=== PATIENT | female | born 1940 | race Caucasian/White ===

== ENCOUNTER → 2017-05-09 | Outpatient (CLI) | payer OTHER, MEDICARE | LOC: BMCIMAGING 12:37 | PROVIDERS: ATTEND Internal Medicine Rheumatology | DX: M75.101 Unspecified rotator cuff tear or rupture of right shoulder, not specified as traumatic (principal) ==

== ENCOUNTER 2018-01-18 02:01 | Emergency (ER) | payer OTHER, MEDICARE ==
[2018-01-18] MEDS ORDERED: methylPREDNISolone SOD SUCC 125 MG/2 ML VIAL IVP ONE (02:25)
[2018-01-18] MEDS ORDERED: HYDROmorphONE/DILAUDID 1 MG/ML INJ IVP ONE (02:25)
--- NOTE | 2018-01-18 02:33 | EDPHY ---
H & P Stated Complaint: RA AND OSTEO PAIN NOT CONTROLLED WITH HER PAIN MEDS Time Seen by Provider: 01/18/18 02:07 HPI/ROS: Chief Complaint: Pain, rheumatoid arthritis flare HPI: 77-year-old woman with a history of rheumatoid and osteoarthritis is presenting with worsening of her typical pain over the last 4 days. Patient states that she usually gets flares with nurse changes in the weather. She states she had worsening pain 4 days ago. At that time she increased her prednisone from 10 mg to 60 mg for single day, then dropped to 20 mg the next day and then finally back to 10 mg yesterday. She has also been using increased doses of her hydrocodone. She has been taking 5 mg 3 times a day for the last 2 days without any significant relief. She normally only takes this intermittently. Denies any fevers or chills. She was recently diagnosed with urinary tract infection a couple no other recent illness. No fevers or chills. No chest pain. No cough. No nausea or vomiting. Pain is primarily in her legs and shoulders and in her fingers of her right hand with no numb. These are her usual areas of pain exacerbation. It is exactly the same as prior flares in the past. ROS: 10 point Review of Systems is negative except as noted in the HPI. PMH: Rheumatoid arthritis, osteoarthritis Social History: No smoking, no alcohol, no recreational drug use Family History: non-contributory Physical Exam: Gen: Awake, Alert, No Distress HEENT: Nose: no rhinorrhea Eyes: PERRLA, EOMI Mouth: Moist mucosa Neck: Supple, no JVD Chest: nontender, lungs clear to auscultation Heart: S1, S2 normal, no murmur Abd: Soft, non-tender, no guarding Back: no CVA tenderness, no midline tenderness Ext: no edema, non-tender Skin: no rash Neuro: CN II-XII intact, Sensation grossly intact, Strength 5/5 in bilateral upper and lower extremities - Personal History Current Tetanus/Diphtheria Vaccine: Yes Current Tetanus Diphtheria and Acellular Pertussis (TDAP): Yes Tetanus Vaccine Date: 29/08/15 - Medical/Surgical History Hx Asthma: No Hx Chronic Respiratory Disease: No Hx Diabetes: No Hx Cardiac Disease: Yes Hx Renal Disease: No Hx Cirrhosis: No Hx Alcoholism: No Hx HIV/AIDS: No Hx Splenectomy or Spleen Trauma: No Other PMH: rheumatoid arthritis, osteo arthritis, CHF, TIA, bradycardia, cholecystectomy, kidney stones, vascular surgery, l hip replacement - Social History Smoking Status: Never smoked Constitutional: Initial Vital Signs Temperature (C) 36.8 C 01/18/18 02:09 Heart Rate 84 01/18/18 02:09 Respiratory Rate 18 01/18/18 02:09 Blood Pressure 126/95 H 01/18/18 02:09 O2 Sat (%) 95 01/18/18 02:09 O2 Delivery Mode Nasal Cannula O2 (L/minute) 2 Allergies/Adverse Reactions: diphenhydramine HCl [From Benadryl] Allergy (Verified 01/18/18 02:13) tremors Penicillins Allergy (Verified 01/18/18 02:13) jittery and goofy promethazine HCl [From Phenergan] Allergy (Verified 01/18/18 02:13) tremors Home Medications: Medication Instructions Recorded Carvedilol [Coreg (*)] 6.25 mg PO BIDMEAL 01/08/15 Clopidogrel Bisulfate [Plavix (*)] 75 mg PO DAILY 01/08/15 Methotrexate Sodium [Methotrexate] 10 mg PO GALLAGHER 01/08/15 Pantoprazole Sodium [Protonix 40mg 40 mg PO BIDAC 01/08/15 (*)] Ranitidine HCl 150 mg PO DAILY@1230 01/08/15 Spironolactone [Aldactone 25 MG 12.5 mg PO DAILY 01/08/15 (*)] Domperidone 10mg 10 mg PO DAILY@12 02/24/16 Domperidone 10mg 20 mg PO BIDAC 02/24/16 Lisinopril [Zestril 2.5 mg (*)] 2.5 mg PO DAILY 02/24/16 Atorvastatin Calcium [Lipitor 40 40 mg PO HS 08/11/16 mg (*)] Hydrocodone/Acetaminophen [Homer 1 - 1.5 each PO Q6 PRN 08/11/16 5/325 (*)] Ofloxacin 0.3% [Ocuflox 0.3%] 1 - 2 drops EACHEYE TID 08/11/16 Ondansetron [Ondansetron Odt] 8 mg PO DAILY PRN 08/11/16 predniSONE 10 mg PO DAILY 08/11/16 Medical Decision Making ED Course/Re-evaluation: Patient is significantly improved after Solu-Medrol, Dilaudid and fentanyl. Pain is down to 3 to 4/10. She is ambulating unassisted in the emergency department. Plan will be to discharge to home with follow-up with her mail deliverer later today. - Data Points Laboratory Results: Laboratory Results 01/18/18 02:15 01/18/18 02:15 01/18/18 01/18/18 01/18/18 03:20 02:15 02:15 WBC 7.76 10^3/uL 10^3/uL (3.80-9.50) RBC 4.07 10^6/uL L 10^6/uL (4.18-5.33) Hgb 12.8 g/dL g/dL (12.6-16.3) Hct 38.2 % % (38.0-47.0) MCV 93.9 fL fL (81.5-99.8) MCH 31.4 pg pg (27.9-34.1) MCHC 33.5 g/dL g/dL (32.4-36.7) RDW 14.9 % % (11.5-15.2) Plt Count 185 10^3/uL 10^3/uL (150-400) MPV 9.7 fL fL (8.7-11.7) Neut % (Auto) 79.1 % H % (39.3-74.2) Lymph % (Auto) 10.7 % L % (15.0-45.0) Steele % (Auto) 8.9 % % (4.5-13.0) Eos % (Auto) 0.6 % % (0.6-7.6) Baso % (Auto) 0.3 % % (0.3-1.7) Nucleat RBC Rel Count 0.0 % % (0.0-0.2) Absolute Neuts (auto) 6.14 10^3/uL 10^3/uL (1.70-6.50) Absolute Lymphs (auto) 0.83 10^3/uL L 10^3/uL (1.00-3.00) Absolute Monos (auto) 0.69 10^3/uL 10^3/uL (0.30-0.80) Absolute Eos (auto) 0.05 10^3/uL 10^3/uL (0.03-0.40) Absolute Basos (auto) 0.02 10^3/uL 10^3/uL (0.02-0.10) Absolute Nucleated RBC 0.00 10^3/uL 10^3/uL (0-0.01) Immature Gran % 0.4 % % (0.0-1.1) Immature Gran # 0.03 10^3/uL 10^3/uL (0.00-0.10) Sodium 140 mEq/L mEq/L (135-145) Potassium 4.5 mEq/L mEq/L (3.3-5.0) Chloride 105 mEq/L mEq/L (97-110) Carbon Dioxide 23 mEq/l mEq/l (22-31) Anion Gap 12 mEq/L mEq/L (8-16) BUN 20 mg/dL mg/dL (7-23) Creatinine 0.7 mg/dL mg/dL (0.6-1.0) Estimated GFR Not Reported Glucose 99 mg/dL mg/dL (70-100) Calcium 9.1 mg/dL mg/dL (8.5-10.4) Urine Color PALE YELLOW Urine Appearance CLEAR Urine pH 5.0 (5.0-7.5) Ur Specific [place] 1.009 (1.002-1.030) Urine Protein NEGATIVE (NEGATIVE) Urine Ketones TRACE H (NEGATIVE) Urine Blood NEGATIVE (NEGATIVE) Urine Nitrate NEGATIVE (NEGATIVE) Urine Bilirubin NEGATIVE (NEGATIVE) Urine Urobilinogen NEGATIVE EU EU (0.2-1.0) Ur Leukocyte Esterase 1+ H (NEGATIVE) Urine RBC 1-3 /hpf /hpf (0-3) Urine WBC 15-25 /hpf H /hpf (0-3) Ur Epithelial Cells TRACE /lpf /lpf (NONE-1+) Urine Bacteria TRACE /hpf H /hpf (NONE SEEN) Urine Mucus TRACE /lpf /lpf (NONE-1+) Urine Glucose NEGATIVE (NEGATIVE) Medications Given: Discontinued Medications Fentanyl (Sublimaze) 50 mcg IVP EDNOW ONE Stop: 01/18/18 03:32 Last Admin: 01/18/18 03:35 Dose: 50 mcg Hydromorphone HCl (Dilaudid) 0.5 mg IVP EDNOW ONE Stop: 01/18/18 02:26 Last Admin: 01/18/18 02:30 Dose: 0.5 mg Hydromorphone HCl (Dilaudid) 0.5 mg IVP EDNOW ONE Stop: 01/18/18 02:56 Last Admin: 01/18/18 03:01 Dose: 0.5 mg Sodium Chloride (Ns) 1,000 mls @ 0 mls/hr IV ONCE ONE PRN Reason: Wide Open Stop: 01/18/18 04:16 Last Admin: 01/18/18 04:15 Dose: 1,000 mls Methylprednisolone Sodium Succinate (Solu-Medrol) 125 mg IVP EDNOW ONE Stop: 01/18/18 02:26 Last Admin: 01/18/18 02:30 Dose: 125 mg Ondansetron HCl (Zofran) 4 mg IVP EDNOW ONE Stop: 01/18/18 05:08 Last Admin: 01/18/18 05:07 Dose: 4 mg Departure - Departure Disposition: Home, Routine, Self-Care Clinical Impression: Rheumatoid arthritis Condition: Good Instructions: Rheumatoid Arthritis (ED) Additional Instructions: Follow up with your mail deliverer later today. Return emergency department had for increasing pain, nausea, vomiting, fainting , fevers, chills, or any other concerns. Referrals: [facility] [Other] - As per Instructions Will Decker MD [[facility] Primary Care Provider] - As per Instructions
[2018-01-18 02:46] LABS: PLATELET COUNT 185 10^3/uL (150-400)
[2018-01-18] MEDS ORDERED: HYDROmorphONE/DILAUDID 2 MG/ML INJ IVP ONE (02:55)
[2018-01-18] MEDS ORDERED: HYDROmorphONE/DILAUDID 1 MG/ML INJ ONE (02:57)
[2018-01-18] MEDS ORDERED: fentaNYL 100 MCG/2 ML INJ IVP ONE (03:31)
[2018-01-18] MEDS ORDERED: NS 1,000 ML IV ONE (04:15)
[2018-01-18] MEDS ORDERED: ONDANSETRON 4 MG/2 ML VIAL ONE (05:04)
[2018-01-18] MEDS ORDERED: ONDANSETRON 4 MG/2 ML VIAL IVP ONE ×2 (05:07→05:10)
[2018-01-18 06:39] VITALS: BP 122/68
== END 2018-01-18 06:47 | disposition home or self-care (01) ==
DX: M06.9 Rheumatoid arthritis, unspecified (principal); I50.9 Heart failure, unspecified
CPT/HCPCS: 96361; 96374; 96375; 96376; 99284; J1170; J2405; J2930; J3010

== ENCOUNTER → 2018-05-17 | Outpatient (CLI) | payer OTHER, MEDICARE | LOC: BMCIMAGING 09:44 | PROVIDERS: ATTEND Internal Medicine Rheumatology | DX: Z13.820 Encounter for screening for osteoporosis (principal); M80.08XA Age-related osteoporosis with current pathological fracture, vertebra(e), initial encounter for fracture; Z78.0 Asymptomatic menopausal state ==

== ENCOUNTER → 2018-11-04 | Outpatient (CLI) | payer OTHER, MEDICARE | LOC: BMCIMAGING 11:12 | PROVIDERS: ATTEND Urology | DX: K59.00 Constipation, unspecified (principal); M47.816 Spondylosis without myelopathy or radiculopathy, lumbar region; M41.86 Other forms of scoliosis, lumbar region; Z96.642 Presence of left artificial hip joint ==